=== PATIENT | female | born 1965 | race Caucasian/White ===

== ENCOUNTER 2017-07-20 18:37 | Emergency (ER) | payer OTHER ==
--- NOTE | 2017-07-20 19:32 | RAD REPORT ---
EXAM DESCRIPTION: CT - Head Brain Wo Cont - 07/20/2017 7:25 pm CLINICAL HISTORY: Dizziness, syncope, history of CVA. COMPARISON: None. TECHNIQUE: All CT scans are performed using dose optimization technique as appropriate and may inclu de automated exposure control or mA/KV adjustment according to patient size. FINDINGS: No intracranial hemorrhage, hydrocephalus or extra-axial fluid collection.An area of glios is is seen in the distribution of the right posterior cerebral artery compatible with old infarct. Gl iosis in the distribution of left MCA also noted, likely related to old infarct. . The paranasal sinuses and mastoids are clear. The calvarium is intact. IMPRESSION: No acute intracranial abnormality. Evidence of prior/old infarcts as detailed.
[2017-07-20 19:33] LABS: Absolute Lymphocytes (CBC) 2.3 K/uL (0.7-4.9); Absolute Monocytes 0.8 K/uL (0.1-1.3); Basophils % 0.6 % (0-1.3); Eosinophils % 2.7 % (0-4.4); Hematocrit 41.9 % (36.0-45.0); Lymphocytes % 31.4 % (15.3-44.8); MCH 33.6 pg (27.0-35.0); MCV 94.6 fL (80-100); MPV 8.5 fL (7.6-11.3); Monocytes % 10.3 % (3.3-12.3); RBC Red Blood Cell Count 4.43 M/uL (3.86-4.86)
[2017-07-20 19:40] LABS: Protime INR 1.58
--- NOTE | 2017-07-20 19:42 | RAD REPORT ---
EXAM DESCRIPTION: RAD - Chest Single View - 07/20/2017 7:36 pm CLINICAL HISTORY: Chest pain, SOB. COMPARISON: None. FINDINGS: Portable technique limits examination quality. The lungs are grossly clear. The heart is normal in size. No displaced fractures. IMPRESSION: No acute intrathoracic process suspected.
[2017-07-20 19:46] LABS: Potassium 3.7 mEq/L (3.6-5.0)
[2017-07-20 19:52] LABS: Albumin 4.1 g/dL (3.2-5.5); Bilirubin Direct 0.1 mg/dL (0-0.2); Bilirubin Total 0.4 mg/dL (0.3-1.2); Magnesium 1.9 mg/dL (1.8-2.5); Protein, Total 6.6 g/dL (6.0-8.3)
[2017-07-20 19:56] LABS: CKMB Creatine Kinase MB 0.4 ng/ml (0.3-4.0)
[2017-07-20] MEDS ORDERED: NA CHLORIDE 0.9% 1,000 ML ONE (19:57)
[2017-07-20] MEDS ORDERED: MECLIZINE HCL 12.5 MG TAB ONE (19:57)
[2017-07-20 20:32] LABS: Urine Blood NEGATIVE (NEG); Urine Glucose NEGATIVE (NEG); Urine Protein NEGATIVE (NEG); Urine Specific Gravity 1.025 (1.005-1.030)
--- NOTE | 2017-07-20 20:53 | ER ---
Nurse's Notes [facility] Name: Rakel Hampton Age: 52 yrs Sex: Female : 1965 Arrival Date: 07/20/2017 Time: 18:45 Bed 18 Private MD: None, None Diagnosis: Labyrinthitis;vertigo Presentation: 07/20 19:03 Presenting complaint: Patient states: "Last couple days I've been dizzy" Denies aj1 syncope, palpitation, SOB fever, N/V/D. Transition of care: patient was not received from another setting of care. Onset of symptoms was July 18, 2017. Risk Assessment: Do you want to hurt yourself or someone else? Patient reports no desire to harm self or others. Initial Sepsis Screen: Does the patient meet any 2 criteria? No. Patient's initial sepsis screen is negative. Does the patient have a suspected source of infection? No. Patient's initial sepsis screen is negative. Care prior to arrival: None. 19:03 Method Of Arrival: Ambulatory aj 19:03 Acuity: DANIELA 3 aj1 Triage Assessment: 19:05 General: Appears in no apparent distress. comfortable, Behavior is calm, cooperative, aj1 appropriate for age. Pain: Denies pain. 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 - Social history:: Smoking status: Patient/guardian denies using tobacco. - Ebola Screening: : Patient denies travel to an Ebola-affected area in the 21 days before illness onset. Screenin:48 Abuse screen: Denies threats or abuse. Nutritional screening: No deficits noted. ea Tuberculosis screening: No symptoms or risk factors identified. Fall Risk None identified. Assessment: 19:00 General: Appears uncomfortable, Behavior is calm, cooperative, appropriate for age. ea Pain: Denies pain. Neuro: Level of Consciousness is awake, alert, obeys commands, Oriented to person, place, time, situation, Reports dizziness. Cardiovascular: Heart tones S1 S2 present Patient's skin is warm and dry. Respiratory: Airway is patent Respiratory effort is even, unlabored, Respiratory pattern is regular, symmetrical, Breath sounds are clear bilaterally. GI: No signs and/or symptoms were reported involving the gastrointestinal system. : No signs and/or symptoms were reported regarding the genitourinary system. EENT: No signs and/or symptoms were reported regarding the EENT system. Derm: Skin is pink, warm \\T\\ dry. Musculoskeletal: Circulation, motion, and sensation intact. 20:50 Reassessment: Patient and/or family updated on plan of care and expected duration. Pain ea level reassessed. Patient is alert, oriented x 3, equal unlabored respirations, skin warm/dry/pink. Patient states symptoms have improved. 21:47 Reassessment: Patient and/or family updated on plan of care and expected duration. Pain ea level reassessed. Patient is alert, oriented x 3, equal unlabored respirations, skin warm/dry/pink. Discharge instructions given to patient, verbalized the understanding of instructions Patient states symptoms have improved. Vital Signs: 19:05 BP 106 / 67; Pulse 69; Resp 16; Temp 97.4; Pulse Ox 100% on R/A; Weight 73.48 kg (R); aj1 Height 5 ft. 1 in. (154.94 cm); Pain 0/10; 19:10 BP 116 / 63; Pulse 65; Resp 18; Pulse Ox 97% on R/A; ea 19:05 Body Mass Index 30.61 (73.48 kg, 154.94 cm) aj1 ED Course: 18:45 Patient arrived in ED. mr 18:46 None, None is Private Physician. mr 19:04 Triage completed. aj1 19:05 Arm band placed on Patient placed in an exam room. aj1 19:09 Abi Martini, TE is Primary Nurse. ea 19:10 Inserted saline lock: 20 gauge in right antecubital area, using aseptic technique. ea Blood collected. 19:20 Alberto Lee PA is PHCP. [facility] 19:20 Armen Dunlap MD is Attending Physician. jmm 19:24 CT Head Brain wo Cont In Process Unspecified. EDMS 19:25 CT completed. Patient tolerated procedure well. Patient moved to CT via wheelchair. vr Patient moved back from CT. 19:36 XRAY Chest (1 view) In Process Unspecified. EDMS 19:48 Patient has correct armband on for positive identification. Bed in low position. Call ea light in reach. Side rails up X 1. 20:51 Isidro Frank MD is Referral Physician. jmm 21:48 No provider procedures requiring assistance completed. IV discontinued, intact, ea bleeding controlled, No redness/swelling at site. Pressure dressing applied. Administered Medications: 20:00 Drug: NS 0.9% 1000 ml Route: IV; Rate: 125 ml/hr; Site: right antecubital; ea 21:50 Follow up: Response: No adverse reaction; IV Status: Completed infusion; IV Intake: ea 500ml 20:00 Drug: Meclizine 50 mg Route: PO; ea 21:46 Follow up: Response: No adverse reaction; Marked relief of symptoms ea Intake: 21:50 IV: 500ml; Total: 500ml. ea Outcome: 20:52 Discharge ordered by MD. jmm 21:48 Discharged to home ambulatory, with significant other. ea 21:48 Condition: improved 21:48 Discharge instructions given to patient, family, Instructed on discharge instructions, follow up and referral plans. medication usage, Demonstrated understanding of instructions, follow-up care, medications, Prescriptions given X 3. 21:49 Patient left the ED. ea Addendum: 07/24/2017 10:03 Addendum: Culture Results: Positive urine culture. Bacteria is resistant to, has i w intermediate sensitivity, or is not tested against prescribed antibiotics. Report given to CLAY for further evaluation and then to leather goods i assembler for follow up with patient. Phone call Attempt #1 pt did not answer, left voice mail with call back number. Signatures: Dispatcher [employer] EDMS Alina Gaspar, RN RN aj1 Alberto Lee PA PA jmm Rivera, Maria mr Williams, Irene, La Will RN, Elena, RN RN ea
--- NOTE | 2017-07-20 20:53 | EDPHYS ---
Physician Documentation [facility] Name: Rakel Hampton Age: 52 yrs Sex: Female : 1965 Arrival Date: 07/20/2017 Time: 18:45 Bed 18 Private MD: None, None ED Physician Armen Dunlap HPI: 07/20 19:44 This 52 yrs old Female presents to ER via Ambulatory with complaints of jmm Dizziness. 19:44 The patient presents with dizziness, feeling off balance. Onset: The symptoms/episode jmm began/occurred acutely, 2 day(s) ago. Context: occurred while the patient was standing. Modifying factors: The symptoms are alleviated by lying down, the symptoms are aggravated by movement of head, standing up, changing position. Associated signs and symptoms: Pertinent positives: vomiting, Pertinent negatives: weakness. This is a 52 year old female with a history or CVA that presents to the ED with dizziness [place] approx 2 [place] Symptoms are worsened with movement. Patient denies pain or weakness. . 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 - Social history:: Smoking status: Patient/guardian denies using tobacco. - Ebola Screening: : Patient denies travel to an Ebola-affected area in the 21 days before illness onset. ROS: 19:44 Constitutional: Negative for fever, chills, and weight loss, Cardiovascular: Negative jmm for chest pain, palpitations, and edema, Respiratory: Negative for shortness of breath, cough, wheezing, and pleuritic chest pain, Back: Negative for injury and pain, MS/Extremity: Negative for injury and deformity, Skin: Negative for injury, rash, and discoloration. 19:44 Abdomen/GI: Positive for nausea and vomiting. 19:44 Neuro: Positive for dizziness. 19:44 All other systems are negative. Exam: 19:44 Constitutional: This is a well developed, well nourished patient who is awake, alert, jmm and in no acute distress. Head/Face: atraumatic. Chest/axilla: Normal chest wall appearance and motion. Nontender with no deformity. No lesions are appreciated. Cardiovascular: Regular rate and rhythm. No gallops, murmurs, or rubs. Full/Equal distal pulses. Respiratory: Lungs have equal breath sounds bilaterally, clear to auscultation. No rales, rhonchi or wheezes noted. No increased work of breathing, no retractions or nasal flaring. 19:44 Eyes: Nystagmus: horizontal nystagmus. 19:44 Musculoskeletal/extremity: ROM: intact in all extremities. 19:44 Neuro: Orientation: is normal, Mentation: is normal, Memory: is normal, Gait: is steady. Vital Signs: 19:05 BP 106 / 67; Pulse 69; Resp 16; Temp 97.4; Pulse Ox 100% on R/A; Weight 73.48 kg (R); aj1 Height 5 ft. 1 in. (154.94 cm); Pain 0/10; 19:10 BP 116 / 63; Pulse 65; Resp 18; Pulse Ox 97% on R/A; ea 19:05 Body Mass Index 30.61 (73.48 kg, 154.94 cm) aj1 MDM: 19:42 Patient medically screened. [facility] 19:44 Differential diagnosis: CVA, TIA, vertigo. Data reviewed: vital signs, nurses notes. [facility] 20:48 Data reviewed: lab test result(s), radiologic studies, CT scan. [facility] 21:00 Counseling: I had a detailed discussion with the patient and/or guardian regarding: the [facility] historical points, exam findings, and any diagnostic results supporting the discharge/admit diagnosis, lab results, radiology results, the need for outpatient follow up, a neurologist, PCP for adjustment of coumadin, to return to the emergency department if symptoms worsen or persist or if there are any questions or concerns that arise at home. 21:00 Medication response: meclizine. Response to treatment: the patient's symptoms have jmm resolved after treatment. ED course: patient's cerebellar exam is normal. symptoms may be due to labrynthitis but due to the patient's risk factors patient advised to follow up with neurology.. 07/20 19:08 Order name: Basic Metabolic Panel; Complete Time: 20:08 [facility] 07/20 19:08 Order name: BNP; Complete Time: 20:08 [facility] 07/20 19:08 Order name: CBC with Diff; Complete Time: 19:42 [facility] 07/20 19:08 Order name: Ckmb; Complete Time: 20:08 [facility] 07/20 19:08 Order name: CPK; Complete Time: 20:08 [facility] 07/20 19:08 Order name: LFT's; Complete Time: 20:08 [facility] 07/20 19:08 Order name: Magnesium; Complete Time: 20:08 [facility] 07/20 19:08 Order name: PT-INR; Complete Time: 19:49 [facility] 07/20 19:08 Order name: Ptt, Activated; Complete Time: 19:49 [facility] 07/20 19:08 Order name: Troponin (emerg Dept Use Only); Complete Time: 19:55 [facility] 07/20 19:08 Order name: XRAY Chest (1 view); Complete Time: 19:42 [facility] 07/20 19:08 Order name: Urine Culture [facility] 07/20 19:08 Order name: CT Head Brain wo Cont; Complete Time: 19:42 [facility] 07/20 20:11 Order name: Urine Dipstick--Ancillary (enter results); Complete Time: 20:35 2 07/20 19:08 Order name: EKG; Complete Time: 19:09 [facility] 07/20 19:08 Order name: Cardiac monitoring; Complete Time: 21:47 [facility] 07/20 19:08 Order name: EKG - Nurse/Tech; Complete Time: 21:47 [facility] 07/20 19:08 Order name: IV Saline Lock; Complete Time: 19:49 [facility] 07/20 19:08 Order name: Labs collected and sent; Complete Time: 19:49 [facility] 07/20 19:08 Order name: O2 Per Protocol; Complete Time: 19:49 [facility] 07/20 19:08 Order name: O2 Sat Monitoring; Complete Time: 20:01 [facility] 07/20 19:08 Order name: Urine Dipstick-Ancillary (obtain specimen); Complete Time: 20:11 [facility] Administered Medications: 20:00 Drug: NS 0.9% 1000 ml Route: IV; Rate: 125 ml/hr; Site: right antecubital; ea 21:50 Follow up: Response: No adverse reaction; IV Status: Completed infusion; IV Intake: ea 500ml 20:00 Drug: Meclizine 50 mg Route: PO; ea 21:46 Follow up: Response: No adverse reaction; Marked relief of symptoms ea Disposition: 23:26 Co-signature as Attending Physician, Armen Dunlap MD. rn Disposition: 07/20/17 20:52 Discharged to Home. Impression: Labyrinthitis, vertigo. - Condition is Stable. - Discharge Instructions: Vertigo. - Prescriptions for Meclizine 25 mg Oral Tablet - take 1 tablet by ORAL route every 8 hours As needed; 30 tablet. Prednisone 20 mg Oral Tablet - take 3 tablet by ORAL route once daily for 5 days; 15 tablet. Cephalexin 500 mg Oral Capsule - take 1 capsule by ORAL route every 12 hours for 10 days; 20 capsule. - Medication Reconciliation Form, Thank You Letter, Antibiotic Education, Prescription Opioid Use form. - Follow up: Private Physician; When: 1 - 2 days; Reason: Continuance of care. Follow up: Isidro Frank MD; When: 1 - 2 days; Reason: Continuance of care. - Notes: Please follow up with neurology for further evaluation. Please return to the ED if you develop weakness, worsening dizziness or any other concerning symptoms. Signatures: Dispatcher [employer] EDMS Alina Gaspar RN RN aj1 Aaron Ziegler MD MD cha Mickail, Joel, PA PA jmm Nieto, Roman, MD MD rn Antunez, Elena, RN RN ea Corrections: (The following items were deleted from the chart) 21:49 20:52 07/20/2017 20:52 Discharged to Home. Impression: Labyrinthitis; vertigo. ea Condition is Stable. Forms are Medication Reconciliation Form, Thank You Letter, Antibiotic Education, Prescription Opioid Use. Follow up: Private Physician; When: 1 - 2 days; Reason: Continuance of care. Follow up: Isidro Frank; When: 1 - 2 days; Reason: Continuance of care. sylvia
--- NOTE | 2017-07-21 09:10 | EKG ---
Test Date: 2017-07-20 Test Time: 21:05:21 E Tailer: NILO MEASUREMENT RESULTS: Intervals: Rate: 66 [place]: 162 QRSD: 72 QT: 420 QTc: 440 [place]: P: 58 [place]: 162 QRS: 50 T: 57 INTERPRETIVE STATEMENTS: Sinus rhythm with premature ventricular complexes or fusion complexes Otherwise normal ECG No previous ECG available for comparison Electronically Signed On 07-21-17 09:08:31 CDT by Matt Mckeon
== END 2017-07-20 21:49 | disposition home or self-care (01) ==
LOC: ER 18:37
DX: H83.09 Labyrinthitis, unspecified ear (principal); R42 Dizziness and giddiness; Z79.01 Long term (current) use of anticoagulants; Z86.73 Personal history of transient ischemic attack (TIA), and cerebral infarction without residual deficits; Z91.040 Latex allergy status; Z91.048 Other nonmedicinal substance allergy status
CPT/HCPCS: 36415; 70450; 71045; 80048; 80076; 81003; 82550; 82553; 83735; 83880; 84484; 85025; 85610; 85730; 87077; 87086; 87088; 87186; 93005; 96360; 96361; 99284; J7030